=== PATIENT | female | born 1985 | race Caucasian/White ===

== ENCOUNTER 2017-10-02 09:25 | Day surgery (SDC) | payer MEDICAID ==
[~2017-10-02] VITALS: Ht 160 cm; Wt 78.0 kg
[2017-10-02 09:31] VITALS: BP_SYST 139
[2017-10-02] MEDS ORDERED: NACL 0.9% 1,000 ML IV ONE (09:45)
[2017-10-02 10:34] LABS: BASOPHILS # (AUTO) 0.2 K/uL (0.0-0.2); BASOPHILS % (AUTO) 1.8 % (0.0-2.0); EOSINOPHILS % (AUTO) 0.1 % (0.0-4.0); HEMATOCRIT 38.4 % (36-48); LYMPHOCYTES # (AUTO) 1.5 K/uL (1.0-5.5); MEAN CORPUSCULAR HEMOGLOBIN 30 pg (27-31); MEAN CORPUSCULAR HGB CONC 34 % (32-36); MEAN CORPUSCULAR VOLUME 88 fL (79.0-98.0); MONOCYTES # (AUTO) 0.3 K/uL (0.0-1.0); MONOCYTES % (AUTO) 3.1 % (1.7-9.3); NEUTROPHILS # (AUTO) 6.7 K/uL (1.8-7.7); PLATELET COUNT (AUTO) 385 K/uL (130-430); RED BLOOD CELL COUNT(AUTO) 4.39 MIL/uL (4.2-6.2); RED CELL DISTRIBUTION WIDTH 13.7 % (9.0-15.0); WHITE BLOOD COUNT (AUTO) 8.7 K/uL (4.8-10.8)
[2017-10-02 10:40] LABS: CALCIUM 8.8 mg/dL (8.4-11.0); CREATININE 0.68 mg/dL (0.55-1.30); POTASSIUM 3.5 mmol/L (3.5-5.1)
[2017-10-02 10:43] LABS: PROTHROMBIN TIME 10.1 SECS (9.5-12.5)
[2017-10-02 11:10] LABS: TOTAL BILIRUBIN 0.4 mg/dL (0.0-1.0)
[2017-10-02 11:20] LABS: BILIRUBIN,URINE NEGATIVE (NEGATIVE); BLOOD, URINE 3+ (NEGATIVE); CLARITY/URINE CLEAR (CLEAR); COLOR,URINE YELLOW (YELLOW); GLUCOSE,URINE NEGATIVE (NEGATIVE); KETONES,URINE NEGATIVE (NEGATIVE); LEUKOCYTE ESTERASE ,URINE NEGATIVE (NEGATIVE); NITRITE, URINE NEGATIVE (NEGATIVE); PH,URINE 5.5 (5.0-8.0); PROTEIN URINE NEGATIVE (NEGATIVE); UROBILINOGEN,URINE 0.2 (0.2-1.0)
[2017-10-02 11:34] LABS: BACTERIA,URINE RARE /HPF (None Seen); MUCUS,URINE None Seen /LPF (None Seen); WBC,URINE 0-3 /HPF (0-3)
[2017-10-02] MEDS ORDERED: CEFAZOLIN 2 GM IVPB PREMIX 50 ML IV ONE (12:00)
[2017-10-02 13:05] VITALS: BP_SYST 148
[2017-10-02] MEDS ORDERED: KETOROLAC TROMETHAMINE 30 MG VIAL IVP PRN (14:30)
[2017-10-02] MEDS ORDERED: ONDANSETRON HCL 4 MG/2 ML VIAL IVP PRN ×2 (14:30→16:00)
[2017-10-02] MEDS ORDERED: fentaNYL CITRATE/PF 100 MCG/2 ML AMP IVP PRN ×2 (14:30)
[2017-10-02] MEDS ORDERED: NS IRRIG SOLN 1000 ML IR ONE (14:40)
[2017-10-02] MEDS ORDERED: SEVOFLURANE 15 MIN GAS INH ONE (14:40)
[2017-10-02] MEDS ORDERED: GLYCOPYRROLATE 0.2 MG/ML VIAL IJ ONE (14:40)
[2017-10-02] MEDS ORDERED: PROPOFOL 200MG/ 20ML VIAL (DIPRIVAN) IV ONE (14:40)
[2017-10-02] MEDS ORDERED: MIDAZOLAM HCL 5 MG/5 ML VIAL IVP ONE (14:40)
[2017-10-02] MEDS ORDERED: BUPIVACAINE /EPINEPHRINE/PF 0.5% 30 ML VIAL INJ ONE (14:40)
[2017-10-02] MEDS ORDERED: NEOSTIGMINE METHYLSULFATE 1 MG/ML, 10 ML VIAL IVP ONE (14:40)
[2017-10-02] MEDS ORDERED: ROCURONIUM BROMIDE 10 MG/ML (ZEMURON) IV ONE (14:40)
[2017-10-02] MEDS ORDERED: fentaNYL CITRATE/PF 100 MCG/2 ML AMP IVP ONE (14:40)
[2017-10-02] MEDS ORDERED: LR 1,000 ML IV.SOLN IV ONE (14:40)
[2017-10-02] MEDS ORDERED: NS 1000 ML BAG IV ONE (14:40)
[2017-10-02] MEDS ORDERED: OXYCODONE/ACETAMINOPHEN 5-325 TABLET PO PRN ×2 (16:00)
[2017-10-02] MEDS ORDERED: HYDROcodone/ACETAMIN 5-325 MG TAB (NORCO/ VICODIN) PO PRN (16:00)
[2017-10-02] MEDS: SIMETHICONE 80 MG TAB.CHEW PO SCH ×2 (16:57→20:58)
[2017-10-02 21:54] VITALS: BP_SYST 115
[2017-10-02] MEDS ORDERED: HYDR-4100 PO ×3 (22:06→22:17)
[2017-10-02] MEDS ORDERED: HYDR-1189 PO ×3 (22:20→22:24)
== END 2017-10-02 22:40 | disposition home or self-care (01) ==
LOC: SED 09:25 → SMU 11:59 → SDS 11:59 → SMU 12:49 → SDS 22:40
PROVIDERS: ATTEND Specialist
DX: O00.102 Left tubal pregnancy without intrauterine pregnancy (principal); E66.01 Morbid (severe) obesity due to excess calories
CPT/HCPCS: 36415; 59151; 76801; 76817; 80053; 81000; 84702; 85025; 85610; 85730; 86900; 86901; 87081; 88305; C1727; C1782; J0690; J2250; J2704; J2710; J3010; J3490 ×2; J7030; J7120